=== PATIENT | female | born 1960 ===

== ENCOUNTER 2021-07-24 10:48 | Emergency (ER) | payer SELFPAY ==
[2021-07-24] VITALS (7 sets, daily range): BP systolic 136–171; BP diastolic 65–83; PULSE 53–67; RESP 18; TEMP 37.1; O2SAT 96–100; BMI 32.3
[2021-07-24 12:44] LABS: Alanine Aminotransferase 18 IU/L (<35); Albumin 4.4 g/dL (3.5-5.0); Albumin Globulin Ratio 1.5 (1.0-2.8); Alkaline Phosphatase 82 U/L (38-126); Aspartate Aminotransferase 22 IU/L (14-36); BUN Creatinine Ratio 13.8 (6-22); Bilirubin Total 0.2 mg/dL (0.2-1.3); Blood Urea Nitrogen 9 mg/dL (7-17); Calcium 9.3 mg/dL (8.4-10.2); Carbon Dioxide 26 mmol/L (22-32); Chloride 104 mmol/L (98-107); Estimated Glomerular Filt Rate > 60.0 mL/min (>60); Globulin 2.9 g/dL (1.7-4.1); Glucose 163 mg/dL (80-110); HEMOLYSIS < 15 (0-50); Lipase 67 U/L (23-300); Potassium 3.5 mmol/L (3.4-5.1); Sodium 139 mmol/L (137-145); Total Protein 7.3 g/dL (6.3-8.2)
[2021-07-24 12:51] LABS: Add Manual Diff / Slide Review NO; Basophils Absolute Auto 0 /uL (0-100); Basophils Percent Auto 0.6 % (0-2); Eosinophils Absolute Auto 300 /uL (0-450); Eosinophils Percent Auto 4.7 % (2-4); Hematocrit 40.5 % (36-46); Hemoglobin 13.3 g/dL (12.0-16.0); Lymphocytes Absolute Auto 2000 /uL (1100-4500); Lymphocytes Percent Auto 30.5 % (25-40); Mean Corpuscular HGB Conc 32.9 % (30-36); Mean Corpuscular Hemoglobin 28.8 PG (26-34); Mean Corpuscular Volume 87.4 fL (80-100); Monocytes Absolute Auto 300 /uL (0-900); Monocytes Percent Auto 5.3 % (3-14); Neutrophils Absolute Auto 3800 /uL (1500-7000); Neutrophils Percent Auto 58.9 % (50-75); Platelet Count 312 X10^3/uL (150-400); Red Blood Cell Count 4.63 X10^6/uL (4.0-5.2); Red Cell Distribution Width 13.1 % (11.6-14.8); White Blood Cell Count 6.5 X10^3/uL (4.5-11.0)
--- NOTE | 2021-07-24 13:43 | ED.GENADULT ---
HPI - General Adult General Chief complaint: Abdominal Pain Stated complaint: Abd/rib pain, back pain, indegestion Time Seen by Provider: 07/24/21 13:43 Source: patient Mode of arrival: Ambulatory Limitations: no limitations History of Present Illness HPI narrative: 60-year-old woman with history of hypertension currently living on [facility] working is and petition presents with 10 days of heartburn type pain. She describes it in her left upper quadrant with abdominal distension and a bandlike pain around the upper abdomen radiating through to her back and up to her neck. Not associated with chest pain, palpitations, cough, fevers. She has had intermittent diarrhea over the last couple of days but no vomiting. She tried with clear liquid diet for the last couple of days along with some oral aloe and found that symptoms were relieved for a day or so but again today are bothering her. She describes no black stools and has not had any emesis. Related Data Previous Rx's Medication Instructions Recorded omeprazole 40 mg capsule,delayed 40 mg PO DAILY #30 cap 07/24/21 release Allergies Allergy/AdvReac Type Severity Reaction Status Date / Time No Known Drug Allergies Allergy Verified 07/24/21 11:31 Review of Systems Review of Systems Narrative: Remainder of complete review of systems is otherwise unremarkable except for that included in the HPI. Patient History Medical History Hypertension Surgical History History of cataract surgery Social History Smoking Status: Never smoker Smoking Status: Never smoker alcohol intake frequency: a few times a month Substance Use Type: does not use Exam Narrative Exam Narrative: General: Healthy appearing, in no acute distress. Able to give a complete and coherent history. Well-nourished well-developed HEENT: Moist mucous membranes, normal sclera with reactive pupils, Neck: No JVD, supple Respiratory: Lungs are clear to auscultation, no wheezing no rales no rhonchi. Full and symmetrical air movement Cardiac: Regular rate and rhythm no murmurs no bruits Abdomen: Soft, tender in the right upper quadrant over McBurney's point. Mild epigastric tenderness no palpable left upper quadrant tenderness Good bowel tones, no flank pain Skin: Warm and dry, no rashes Neurologic: Grossly neurologically intact with no obvious asymmetries or abnormalities Extremities: No trauma, well perfused Psych: Cooperative, appropriate insight and affect Initial Vital Signs Initial Vital Signs: Vital Signs Temperature 98.8 F 07/24/21 11:28 Pulse Rate 67 07/24/21 11:28 Respiratory Rate 18 07/24/21 11:28 Blood Pressure 171/70 H 07/24/21 11:28 Pulse Oximetry 98 07/24/21 11:28 Course Orders Ordered: ED Orders 07/24/21 11:21 EKG-12 Lead Stat 07/24/21 11:45 Complete Blood Count AUTO DIFF Stat Comprehensive Metabolic Panel Stat Lipase Stat 07/24/21 13:52 US abdomen limited Stat Vital Signs Vital signs: Vital Signs - 8 hr 07/24/21 11:28 07/24/21 14:10 07/24/21 14:30 Temperature 98.8 F Pulse Rate 67 64 63 Respiratory Rate 18 Blood Pressure 171/70 H 166/83 H 136/65 Pulse Oximetry 98 100 98 07/24/21 15:00 07/24/21 15:30 07/24/21 16:00 Temperature Pulse Rate 53 L 60 59 L Respiratory Rate Blood Pressure 146/70 H 142/65 H 155/74 H Pulse Oximetry 98 96 97 Medical Decision Making Lab Data Result diagrams: 07/24/21 11:45 07/24/21 11:45 Labs: Lab Results 07/24/21 07/24/21 Range/Units 11:45 11:45 WBC 6.5 (4.5-11.0) X10^3/uL RBC 4.63 (4.0-5.2) X10^6/uL Hgb 13.3 (12.0-16.0) g/dL Hct 40.5 (36-46) % MCV 87.4 (80-100) fL MCH 28.8 (26-34) PG MCHC 32.9 (30-36) % RDW 13.1 (11.6-14.8) % Plt Count 312 (150-400) X10^3/uL Neut % (Auto) 58.9 (50-75) % Lymph % (Auto) 30.5 (25-40) % [place] % (Auto) 5.3 (3-14) % Eos % (Auto) 4.7 H (2-4) % Baso % (Auto) 0.6 (0-2) % Neut # (Auto) 3800 (2759-3606) /uL Lymph # (Auto) 2000 (3735-5784) /uL [place] # (Auto) 300 (0-900) /uL Eos # (Auto) 300 (0-450) /uL Baso # (Auto) 0 (0-100) /uL Sodium 139 (137-145) mmol/L Potassium 3.5 (3.4-5.1) mmol/L Chloride 104 (98-107) mmol/L Carbon Dioxide 26 (22-32) mmol/L BUN 9 (7-17) mg/dL Creatinine 0.65 (0.52-1.04) mg/dL Estimated GFR > 60.0 (>60) mL/min BUN/Creatinine Ratio 13.8 (6-22) Glucose 163 H (80-110) mg/dL Calcium 9.3 (8.4-10.2) mg/dL Total Bilirubin 0.2 (0.2-1.3) mg/dL AST 22 (14-36) IU/L ALT 18 (<35) IU/L Alkaline Phosphatase 82 (38-126) U/L Total Protein 7.3 (6.3-8.2) g/dL Albumin 4.4 (3.5-5.0) g/dL Globulin 2.9 (1.7-4.1) g/dL Albumin/Globulin Ratio 1.5 (1.0-2.8) Lipase 67 (23-300) U/L Urine Dip Bedside Urine Glucose Negative Bedside Urine Bilirubin - Negative Bedside Urine Ketone - Negative Urine Specific [place] 1.015 Bedside Urine Occult Blood - Negative Bedside Urine pH 6.0 Bedside Urine Protein - Negative Bedside Urine Urobilinogen - Negative Bedside Urine Nitrite - Negative Bedside Urine Leukocytes - Negative Esterase Point of care testing: Urine Dip Bedside Urine Glucose Negative Bedside Urine Bilirubin - Negative Bedside Urine Ketone - Negative Urine Specific [place] 1.015 Bedside Urine Occult Blood - Negative Bedside Urine pH 6.0 Bedside Urine Protein - Negative Bedside Urine Urobilinogen - Negative Bedside Urine Nitrite - Negative Bedside Urine Leukocytes - Negative Esterase Imaging Data US - abdomen: Radiologist's Impression: FINDINGS: Liver is normal in size. Liver has diffusely increased echogenicity. No focal hepatic mass lesions. Gallbladder is sonographically normal. No gallstones. No gallbladder wall thickening. Gallbladder wall measures 2.6 millimeters No pericholecystic fluid. No sonographic Alvarez sign. Biliary tree is nondilated. Common bile duct measures 6.7 millimeters. Head and body pancreas is sonographically normal. Tail of pancreas obscured by bowel gas. IMPRESSION: 1. No sonographic evidence of cholelithiasis or cholecystitis. If there is continued clinical concern for cholecystitis, a nuclear medicine HIDA scan should be considered for further evaluation. 2. Echogenic liver. Finding typically represents fatty infiltration; however, finding is nonspecific and correlation with clinical and laboratory findings is recommended to exclude other etiologies including hepatic cirrhosis. Dictated by: Alysa Cueva MD, PhD on 07/24/2021 at 14:41 ECG Data Interpretation: Sinus rhythm at 65 Normal axis, normal intervals No ischemic changes MDM Narrative Medical decision making narrative: 60-year-old woman presents with upper abdominal pain. Lab work is reassuring no evidence of acute infection, no pancreatitis. Ultrasound does not suggest gallstones or acute cholecystitis. There is no evidence of an acute abdomen. The pain is absolutely in the epigastric area to the right upper quadrant and not cardiac in nature. She notes that 15 years ago she was treated for H pylori infection. Will place her on omeprazole daily for a month. Will ask for follow-up with her primary care physician to see if she needs to be treated again for H pylori. She is safe for home discharge Discharge Plan Departure Patient Disposition: Home Clinical Impression: Abdominal pain Qualifiers: Abdominal location: epigastric Qualified Code(s): R10.13 - Epigastric pain Gastritis Qualifiers: Gastritis type: unspecified gastritis Chronicity: acute Gastritis bleeding: without bleeding Qualified Code(s): K29.00 - Acute gastritis without bleeding Instructions: DI for Abdominal Pain-Adult Activity Restrictions/Additional Instructions: Thank you for coming in today You do not have gallstones you do not have cholecystitis and you do not have pancreatitis. There is no evidence of acute infection or bleeding and you do not have a clinical exam that suggests he need acute surgical intervention. I suspect that this pain is from your stomach and irritation to the lining of your stomach. I am going to suggest that you complete a 1 month course of omeprazole, 40 mg daily. If this resolves her symptoms you can use the omeprazole only as needed. With your distant history of H pylori, I would recommend you follow-up with your outpatient Dr. to see if you have recurrent infection with H.pylori. If you have worsening symptoms or develop new findings, please feel free to return for further evaluation Prescriptions: New omeprazole 40 mg capsule,delayed release(DR/EC) 40 mg PO DAILY Qty: 30 RF: 1
--- NOTE | 2021-07-24 13:52 | DI.US.S_ITS ---
PROCEDURE: US ABDOMEN LIMITED INDICATIONS: RIGHT UPPER QUADRANT PAIN TECHNIQUE: Real-time focused scanning was performed of the abdomen, with image documentation. COMPARISON: None. FINDINGS: Liver is normal in size. Liver has diffusely increased echogenicity. No focal hepatic mass lesions. Gallbladder is sonographically normal. No gallstones. No gallbladder wall thickening. Gallbladder wall measures 2.6 millimeters No pericholecystic fluid. No sonographic Alvarez sign. Biliary tree is nondilated. Common bile duct measures 6.7 millimeters. Head and body pancreas is sonographically normal. Tail of pancreas obscured by bowel gas. IMPRESSION: 1. No sonographic evidence of cholelithiasis or cholecystitis. If there is continued clinical concern for cholecystitis, a nuclear medicine HIDA scan should be considered for further evaluation. 2. Echogenic liver. Finding typically represents fatty infiltration; however, finding is nonspecific and correlation with clinical and laboratory findings is recommended to exclude other etiologies including hepatic cirrhosis. Dictated by: Alysa Cueva MD, PhD on 07/24/2021 at 14:41 Approved by: Alsya Cueva MD, PhD on 07/24/2021 at 14:42
[2021-07-24] MEDS: PANTOPRAZOLE 40 MG VIAL IV (16:31)
== END 2021-07-24 16:42 | disposition home or self-care (01) ==
PROVIDERS: Emergency Provider Emergency Medicine
DX: R10.13 Epigastric pain (principal); K29.00 Acute gastritis without bleeding; R19.7 Diarrhea, unspecified; R07.9 Chest pain, unspecified
CPT/HCPCS: 36415; 76705; 80053; 81003; 83690; 85025; 93005; 96374; 99284; C9113